=== PATIENT | male | born 1980 | race Caucasian/White ===

== ENCOUNTER 2018-09-07 02:40 | Emergency (ER) | payer SELFPAY ==
[2018-09-07] MEDS ORDERED: HALOPERIDOL 5 MG TABLET PO ONE ×2 (03:23→08:00)
--- NOTE | 2018-09-07 03:26 | ER Document Report ---
Addendum entered and electronically signed by KAROLINA NICOLE LPC 09/09/18 12:46: Discharge - Discharge Clinical Impression: Suicidal thoughts, Rib pain, History of posttraumatic stress disorder (PTSD), N onadherence to medication Insomnia Qualifiers: Insomnia type: unspecified Qualified Code(s): G47.00 - Insomnia, unspecified Condition: Stable Disposition: HOME, SELF-CARE Additional Instructions: You have been evaluated by both medical and behavioral health providers while in the emergency department. You have been cleared from both acute medical and psychiatric services. You have been administered and provided prescriptions for medications that will help to manage mood/impulse control. You should take these as directed and follow up with outpatient dual diagnosis services. You initiated and arranged assistance from [facility] in [place], [place] for treatment options. [facility] and medical staff confirmed and coordinated with 2 individuals. Bipolar Disorder (Post Traumatic Stress Disorder mimics many symptoms of Bipolar) Bipolar disorder is also called manic-depressive disorder. Depression alternates with brain hyperactivity called valerie. Each phase lasts from several days to a few weeks. We don't know exactly what causes bipolar disorder, but it's treatable. During the "manic phase," you may feel elated and energetic. You may have racing thoughts, rapid speech, increased activity, and grandiose ideas. During this time, you may not realize how poor your judgement is. Inappropriate spending, drug abuse, excessive alcohol use, marriage problems, and irresponsible sexual behavior are common during the manic phase. During the "depressive phase," you might feel depressed, guilty, worthless, fatigued, and unable to concentrate. You might have thoughts of suicide. Good treatments are available for bipolar disorder. [place] is a classic drug for bipolar disorder, and is still often useful. If the manic phase is very mild, an antidepressant alone can be prescribed. If the manic phase is very severe, an antipsychotic medicine (such as Haldol) may be needed. The treatment must be matched to your symptoms, so it's important to work closely with your psychiatric care provider. Contact your physician, the hospital emergency center, crisis line, or your counsellor if you are losing control or having self-destructive thoughts. SUICIDAL IDEATION: Suicidal ideation is a common medical term for thoughts about suicide, which may be as detailed as a formulated plan, without the suicidal act itself. Although most people who undergo suicidal ideation do not commit suicide, some go on to make suicide attempts. The range of suicidal ideation varies greatly from fleeting to detailed planning, role playing, and unsuccessful attempts. While thoughts about suicide are common, most people do not carry out serious actions to commit suicide. Based upon your evaluation and discussion with you, we do not believe you are currently at risk to act upon your thoughts of suicide. You have agreed to return to the Emergency Department, at any time, if you feel inclined to act upon your suicidal thoughts. FOLLOW-UP CARE: You are being provided prescriptions for Depakote 500MG twice a day for mood stabilization and Zyprexa 2.5MG twice a day for mood stabilization/impulse control. You should continue taking these as directed. You have arranged for [facility] (Otto Nava and Rhett). Rhett is transporting you from the [facility] to [facility] in [place], [place] and/or [facility]. You should follow through with their assistance in getting you into treatment. [facility] was faxed your referral packet for information purposes as you requested. If you experience worsening or a significant change in your symptoms, notify the physician immediately or return to the Emergency Department at any time for re-evaluation. Referrals: [facility] Crisis Team [Provider Group] - Follow up as needed ([facility] workers are assisting you with treatment in [place], [place] at [facility] and/or [facility]. ) Original Note: ED Psych Disorder / Suicide - General Chief Complaint: Suicidal Ideation Stated Complaint: PSYCH Time Seen by Provider: 09/07/18 03:13 Notes: Patient is a 37-year-old male that comes to the emergency department for chief complaint of insomnia and suicidal ideations. He states that he has a history of PTSD, bipolar, depression, states that he is not currently on any medications because he could not afford them, states he has been in and out of psychiatric facilities in the past. He states he is not suicidal at this time but he has had been having suicidal thoughts at home and he was afraid he might "flip a switch and do something". He denies homicidal ideations as well. He denies any plan. He states he used to drink alcohol intake cocaine but now he just smokes pot. He states he has not slept in several days and he feels like he really needs to sleep. He states he is afraid to sleep because he has nightmares. Patient denies any sick or physical symptoms except for falling off of a ladder several days ago and having very sore ribs in the front since that time. He denies difficulty breathing, fever. TRAVEL OUTSIDE OF THE [place] IN LAST 30 DAYS: No - Related Data Allergies/Adverse Reactions: No Known Drug Allergies Allergy (Verified 09/07/18 03:15) Past Medical History - General Information source: Patient - Social History Smoking Status: Current Every Day Smoker Drug Abuse: Other - former cocaine abuse Lives with: Alone Family History: Reviewed & Not Pertinent Patient has suicidal ideation: No Patient has homicidal ideation: No Renal/ Medical History: Denies: Hx Peritoneal Dialysis Psychiatric Medical History: Reports: Hx Bipolar Disorder, Hx Personality Disorder, Hx Post Traumatic Stress Disorder Surgical Hx: Negative - Immunizations Hx Diphtheria, Pertussis, Tetanus Vaccination: Yes Review of Systems - Review of Systems Constitutional: No symptoms reported EENT: No symptoms reported Cardiovascular: No symptoms reported Respiratory: See HPI Gastrointestinal: No symptoms reported Genitourinary: No symptoms reported Male Genitourinary: No symptoms reported Musculoskeletal: See HPI Skin: No symptoms reported Hematologic/Lymphatic: No symptoms reported Neurological/Psychological: See HPI Physical Exam - Vital signs Vitals: Temp Pulse Resp BP Pulse Ox 98 F 66 16 148/87 H 98 09/07/18 03:14 09/07/18 03:14 09/07/18 03:14 09/07/18 03:14 09/07/18 03:14 - Notes Notes: GENERAL: Alert. No acute distress. HEAD: Normocephalic, atraumatic. EYES: Pupils equal, round, and reactive to light. Extraocular movements intact. ENT: Oral mucosa moist, tongue midline. Oropharynx unremarkable. Airway patent. LUNGS: Clear to auscultation bilaterally, no wheezes, rales, or rhonchi. No respiratory distress. Mild tenderness over the chest wall with gentle palpation but no crepitus, swelling, severe tenderness. HEART: Regular rate and rhythm. No murmur ABDOMEN: Soft, non-tender. Non-distended. Bowel sounds present in all 4 quadrants. GENITOURINARY: Deferred EXTREMITIES: Moves all 4 extremities spontaneously. No edema, normal radial and dorsalis pedis pulses bilaterally. No cyanosis. BACK: no cervical, thoracic, lumbar midline tenderness. No saddle anesthesia, normal distal neurovascular exam. Moves all extremities in full range of motion. NEUROLOGICAL: Alert and oriented x3. Normal speech. Cranial nerves II through XII grossly intact. PSYCH: Frustrated tone but not aggressive or tearful SKIN: Warm, dry, normal turgor. No rashes or lesions noted. Course - Re-evaluation Re-evalutation: Patient is denying being suicidal or homicidal. He is alert, conversational, appears sad and frustrated. He also appears very tired. He asks for something to be given to him so he can sleep. He was given 5 mg of Haldol. Work-up pending. Chest x-ray was performed because of soreness over the ribs on both sides of the chest wall anteriorly after the fall and pain with deep breaths. He has clear lungs with no rales, no lower extremity swelling. Chest x-ray negative for fra ctured ribs. Report reads pulmonary vascular congestion although this is not obvious and patient's clinical presentation does not suggest this. Patient has no dyspnea on exertion, I laid him flat and he has no difficulty breathing. CBC, chemistry unremarkable. Alcohol negative. Patient has no evidence of withdrawal on examination or by vital signs. Urinalysis still pending, however based on his lack of urinary symptoms and unremarkable vital signs patient will be medically cleared regardless to be evaluated by the mental health team this morning. Patient was reevaluated and is sleeping. 09/07/18 07:26 Urinalysis shows elevated specific gravity consistent with dehydration but patient has been drinking a lot of fluids as well. Despite patient telling me he has not been using cocaine he is positive for both cocaine and marijuana. Patient has no evidence of cocaine intoxication, no chest pain, reevaluation he is asking for ibuprofen but has no complaints otherwise. He is medically cleared pending mental health evaluation. - Vital Signs Vital signs: Temp Pulse Resp BP Pulse Ox 98.6 F 80 16 128/78 H 96 09/07/18 03:23 09/07/18 03:23 09/07/18 03:23 09/07/18 03:23 09/07/18 03:23 - Laboratory Result Diagrams: 09/07/18 03:25 09/07/18 03:25 Laboratory results interpreted by me: 09/07/18 09/07/18 03:25 06:50 Chloride 108 H Glucose 122 H Urine Protein 30 H Urine Ascorbic Acid 40 H Salicylates < 1.0 L Acetaminophen < 10 L Discharge - Discharge Clinical Impression: Suicidal thoughts, Rib pain Insomnia Qualifiers: Insomnia type: unspecified Qualified Code(s): G47.00 - Insomnia, unspecified Condition: Stable Disposition: PSYCH HOSP/UNIT
[2018-09-07 03:40] LABS: ABSOLUTE LYMPHOCYTES (AUTO) 1.5 10^3/uL (0.5-4.7); ABSOLUTE MONOCYTES (AUTO) 0.7 10^3/uL (0.1-1.4); ABSOLUTE NEUT (AUTO) 4.3 10^3/uL (1.7-8.2); BASOPHILS % (AUTO) 0.1 % (0-2); EOSINOPHILS % (AUTO) 0.3 % (0-6); HEMATOCRIT 39.5 % (37.9-51.0); HEMOGLOBIN 13.5 g/dL (13.5-17.0); MEAN CORPUSCULAR HEMOGLOBIN 29.1 pg (27.0-33.4); MEAN CORPUSCULAR HGB CONC 34.1 g/dL (32.0-36.0); MEAN CORPUSCULAR VOLUME 85 fl (80-97); MONOCYTES % (AUTO) 10.5 % (3-13); PLATELET COUNT 234 10^3/uL (150-450); RED BLOOD COUNT 4.64 10^6/uL (4.35-5.55); RED CELL DISTRIBUTION WIDTH 13.7 % (11.5-14.0); SEGMENTED NEUTROPHILS % (AUTO) 66.1 % (42-78); TOTAL CELLS COUNTED % (AUTO) 100 %; WHITE BLOOD COUNT 6.4 10^3/uL (4.0-10.5)
[2018-09-07 03:56] LABS: ALANINE AMINOTRANSFERASE 28 U/L (21-72); ALKALINE PHOSPHATASE 60 U/L (38-126); ANION GAP 8 (5-19); ASPARTATE AMINO TRANSFERASE 17 U/L (17-59); BILIRUBIN,DIRECT 0.2 mg/dL (0.0-0.4); BILIRUBIN,TOTAL 0.5 mg/dL (0.2-1.3); BLOOD UREA NITROGEN 14 mg/dL (7-20); CALCIUM 9.6 mg/dL (8.4-10.2); CARBON DIOXIDE 28 mmol/L (22-30); CHLORIDE 108 mmol/L (98-107); GLUCOSE 122 mg/dL (75-110); POTASSIUM 3.7 mmol/L (3.6-5.0); SODIUM 143.6 mmol/L (137-145); TOTAL PROTEIN 6.5 g/dL (6.3-8.2)
[2018-09-07 03:58] LABS: ACETAMINOPHEN < 10 ug/mL (10-30); ALCOHOL < 10 mg/dL (NONE DETECTED); SALICYLATE < 1.0 mg/dL (2.0-20.0)
--- NOTE | 2018-09-07 04:13 | RADIOLOGY REPORT (SQ) ---
EXAM DESCRIPTION: XR RIBS BILATERAL WITH CHEST COMPLETED DATE/TME: 09/07/2018 03:24 CLINICAL HISTORY: 37 years Male, fall, rib pain COMPARISON: None. NUMBER OF VIEWS/TECHNIQUE: 5 FINDINGS: No displaced rib fracture. No pneumothorax. Pulmonary vascular congestion. IMPRESSION: Pulmonary vascular congestion.
[2018-09-07 07:08] LABS: APPEARANCE,URINE SLIGHTLY-CLOUDY; BILIRUBIN,URINE NEGATIVE (NEGATIVE); COLOR,URINE YELLOW; GLUCOSE, URINE NEGATIVE (NEGATIVE); KETONES,URINE NEGATIVE (NEGATIVE); LEUKOCYTE ESTERASE,URINE NEGATIVE (NEGATIVE); NITRITE,URINE NEGATIVE (NEGATIVE); PROTEIN,URINE 30 mg/dL (NEGATIVE); URINE SPECIFIC GRAVITY 1.031; UROBILINOGEN,URINE NEGATIVE mg/dL (<2.0)
[2018-09-07 07:20] LABS: URINE AMPHETAMINES SCREEN NEGATIVE; URINE BARBITURATES SCREEN NEGATIVE; URINE BENZODIAZEPINES SCREEN NEGATIVE; URINE COCAINE SCREEN UNCONFIRMED POSITIVE; URINE MARIJUANA (THC) SCREEN UNCONFIRMED POSITIVE; URINE METHADONE SCREEN NEGATIVE; URINE PHENCYCLIDINE SCREEN NEGATIVE
[2018-09-07] MEDS ORDERED: IBUPROFEN 600 MG TABLET PO ONE (07:45)
--- NOTE | 2018-09-07 10:05 | ER Document Report ---
Doctor's Note Notes: 09/07/18 10:03 I have evaluated this pt. this am and he has no c/o at this time. He feels all of his needs are being met and his physical exam is normal. He feels he needs help and cannot go home. He is awaiting disposition per psych
[2018-09-07] MEDS ORDERED: DIVALPROEX SODIUM 250 MG TABLET.DR PO ONE (13:30)
--- NOTE | 2018-09-07 15:53 | PSYCHOLOGICAL NOTE ---
Psych Note - Psych Note Date seen by psych provider: 09/07/18 Psych Note: Presenting Problem: Hx PTSD (childhood trauma per patient)/Bipolar, Hx SA, current UDS positive for Cocaine and Cannabis (he admitted to smoking pot the past two days and thought it was laced), in [place] from [place] for last 3 weeks due to work, no place to reside been staying where he works, no medications in 4 months, Hx SIB cutting/hitting head, hit head against cabinet door in room this morning. He noted previous SA detox/rehab and hospitalization ([facility] 3 years ago). He noted being on lots of different medications and listed: Depakote, Minipress, Latuda, Wellbutrin, [place], Olanzapine (didn't work, made him nauseous and sick) and Zoloft. He was tearful, said "this has been going on a long time, I does so well then starts all over, I'm sick and tired of this." Diagnosis: Polysubstance Use Cocaine Cannabis PTSD by history Bipolar by history Medication recommendations made by the psychiatric medical provider, Dr. Lizzy MD., includes: Add Depakote 250MG twice a day for mood stabilization Impression/Plan: Recommendation for 24 Hour IVC Petition. Patient has a history of PTSD/Bipolar, has been unmedicated for 4 months, has been using substances, endrosed SI Started medications. Plan to reassess in the morning with possibility of discharge. Consulted with Dr. Byrd regarding the management and care of patient. ED Physician in agreement with recommendations.
[2018-09-07] MEDS ORDERED: DIVALPROEX SODIUM 250 MG TABLET.DR PO SCH (18:00)
[2018-09-07] MEDS: DIVALPROEX SODIUM 250 MG TABLET.DR PO SCH (22:52)
--- NOTE | 2018-09-08 10:02 | ER Document Report ---
Doctor's Note Notes: 09/08/18 10:01 I have evaluated this pt. this am and she has no c/o. She feels all of her needs are being met and her physical exam is normal. She is awaiting disposition per mental health.
[2018-09-08] MEDS: DIVALPROEX SODIUM 250 MG TABLET.DR PO SCH ×2 (11:13→23:26)
[2018-09-08] MEDS ORDERED: IBUPROFEN 800 MG TABLET PO ONE (15:35)
--- NOTE | 2018-09-08 16:02 | PSYCHOLOGICAL NOTE ---
Psych Note - Psych Note Date seen by psych provider: 09/08/18 Time seen by psych provider: 08:05 Psych Note: Presenting Problem: Hx PTSD (childhood trauma per patient)/Bipolar, Hx SA, current UDS positive for Cocaine and Cannabis (he admitted to smoking pot the past two days and thought it was laced), in [place] from [place] for last 3 weeks due to work, no place to reside been staying where he works, no medications in 4 months, Hx SIB cutting/hitting head, hit head against cabinet door in room this morning. He noted previous SA detox/rehab and hospitalization ([facility] 3 years ago). Checking conducted with patient patient's mood is labile with tearful affect. Patient disclosed that he had gone 2-1/2 years without using alcohol or cocaine and is frustrated that his marijuana was laced without his knowledge. He disclosed that his history has resulted in little support network; "I have burned all my bridges and I get that I have done that." He identifies frustration with himself stating that he always seems to have an excuse or something always seems to happen which continues this continues pattern of having mental health crises. Patient appears to by hypomanic with slightly pressured speech, conversational speech is circumstantial but transitions make sense. Patient does appear to have difficulties verbalizing his thoughts at times. Diagnosis: Bipolar by history PTSD by history Polysubstance Use Cocaine Cannabis Medication recommendations made by the psychiatric medical provider, Dr. Lizzy MD., includes: Please increase Depakote to 500MG twice daily Please add Zyprexa 2.5mg twice daily Impression/Plan: Patient is recommended to continue under IVC. Patient continues to demonstrate labile mood with tearful affect. Clinician notes patient conversational speech is slightly pressured with thought processes that are circumstantial Patient's transitions between topics do make sense at this point; however, patient does appear to have difficulty verbalizing his thoughts with frequent pauses, word searching, and not finishing a sentence. Updated medication recommendations have been provided. Patient will be reevaluated. Dr. Byrd was consulted and the care management of this patient; attending physicians in agreement with recommendations and disposition.
[2018-09-08] MEDS: OLANZAPINE 2.5 MG TABLET PO SCH (18:34)
[2018-09-08] MEDS: DIVALPROEX SODIUM 500 MG TAB.SR.24H PO SCH (18:34)
[2018-09-08] MEDS ORDERED: IBUPROFEN 600 MG TABLET PO ONE (23:33)
--- NOTE | 2018-09-09 08:58 | ER Document Report ---
Doctor's Note Notes: 09/09/18 09:00 37-year-old male presents with continued suicidal ideation. Patient has no physical complaints at this time. Patient pending placement for psychiatric screen. Reassuring benign physical exam, vital signs all stable within normal limits. Patient ambulates off to shower
[2018-09-09] MEDS: DIVALPROEX SODIUM 500 MG TAB.SR.24H PO SCH (10:25)
[2018-09-09] MEDS: OLANZAPINE 2.5 MG TABLET PO SCH (10:25)
[2018-09-09] MEDS: DIVALPROEX SODIUM 250 MG TABLET.DR PO SCH (10:26)
[2018-09-09] MEDS ORDERED: IBUPROFEN 600 MG TABLET PO ONE (11:00)
[2018-09-09 12:10] VITALS: BP 119/71
--- NOTE | 2018-09-09 12:36 | PSYCHOLOGICAL NOTE ---
Psych Note - Psych Note Date seen by psych provider: 09/09/18 Psych Note: Presenting Problem: IVC, Hx PTSD (childhood trauma per patient)/Bipolar, Hx SA, UDS positive for Cocaine and Cannabis (he admitted to smoking pot the past two days and thought it was laced), in [place] from [place] for last 3 weeks due to work, no place to reside been staying where he works, no medications in 4 months, Hx SIB cutting/hitting head, hit head against cabinet door in room Monday (09/07/18) morning. Medications adjusted yesterday to address mood and hypomania. Today mood was more euthymic with brighter affect. He was alert, oriented and linear to extent he was able to arrange plan to get back to [place], [place] for [facility] placement or [facility]. Spoke to Otto Nava ([phone]), [facility] worker that patient had contact information for. He confirmed patient was going to walk in to [facility] and if unable to get in there would be able to stay at [facility]. Spoke to Abdirizak in Crisis at [facility] who noted they would screen patient and determine if he meets criteria for inpatient. he provided fax number ([phone]) for referral but explained it was just for informational purposes, did not mean patient was accepted. Patient also made aware of the same. Rhett from [facility] spoke to attending nurse and confirmed he would be providing transportation and would be to [facility] in 2 hours (from about 1215). Diagnosis: Polysubstance Use Cocaine Cannabis PTSD by history Bipolar by history Discharge Medications: Depakote 500MG BID Zyprexa 2.5MG BID Impression/Plan: Patient is cleared from acute psychiatric services. Recommendation to rescind IVC. He has been in the ED with medication administration since Monday (09/07/18). His mood is more euthymic with brighter affect. He was alert and oriented with linear thoughts processes as evidenced by arranging plan to get back to [place], [facility] supports and getting into [facility] or [facility]. Coordinated with Otto Nava and Rhett from [facility] who confirmed plan and transportation. Informed patient of his self efficacy for empowerment. Consulted with Dr. Byrd regarding the management and care of patient. ED Physician in agreement with recommendations.
== END 2018-09-09 14:58 | disposition home or self-care (01) ==
LOC: ER 02:40
DX: R45.851 Suicidal ideations (principal); G47.00 Insomnia, unspecified; Z91.14 Patient's other noncompliance with medication regimen; R07.81 Pleurodynia; R07.1 Chest pain on breathing; W11.XXXA Fall on and from ladder, initial encounter; R09.89 Other specified symptoms and signs involving the circulatory and respiratory systems; F17.200 Nicotine dependence, unspecified, uncomplicated; Z86.59 Personal history of other mental and behavioral disorders
CPT/HCPCS: 99285; 36415; 80307 ×4; 85025; 80053; 81001; 80164; 71111; J3490 ×2